=== PATIENT | female | born 2000 | race African-American/Black ===

== ENCOUNTER → 2023-09-21 | Outpatient (CLI) | payer OTHER, MEDICAID ==
[2023-09-21 17:40] LABS: C REACTIVE PROTEIN QUANTITATIV < 0.40 MG/DL (<1.0)
[2023-09-21 17:41] LABS: ALBUMIN 3.4 G/DL (3.2-5.2); ALKALINE PHOSPHATASE 71 U/L (46-116); ALT/SGPT 16 U/L (7.0-40); AST/SGOT 15 U/L (<34); BILIRUBIN,TOTAL 0.9 MG/DL (0.3-1.2); BLOOD UREA NITROGEN 12 MG/DL (9-23); CALCIUM LEVEL 8.7 MG/DL (8.5-10.1); CARBON DIOXIDE LEVEL 26 MMOL/L (20-31); CHLORIDE LEVEL 107 MMOL/L (98-107); CHOLESTEROL LEVEL 140 MG/DL (<200); CHOLESTEROL RISK RATIO 3.29 (<5); CREATININE FOR GFR 0.66 MG/DL (0.55-1.30); GLOMERULAR FILTRATION RATE > 60.0 (>60); GLUCOSE, FASTING 77 MG/DL (60-100); HDL CHOLESTEROL 42.5 MG/DL (>40); HEMATOCRIT 37.5 % (36.0-47.0); HEMOGLOBIN 12.1 g/dl (12.0-15.5); IRON (FE) 125 UG/DL (50-170); LDL CHOLESTEROL 81.1 MG/DL (<100); MEAN CORPUSCULAR HGB CONC 32.3 g/dl (32.0-36.5); MEAN CORPUSCULAR VOLUME 89.9 fl (80.0-96.0); NON-HDL-C 97.5 MG/DL; PERCENT SATURATION 35.7 % (13.2-45.0); PLATELET COUNT, AUTOMATED 460 10^3/uL (150-450); POTASSIUM SERUM 4.8 MMOL/L (3.5-5.1); RED BLOOD COUNT 4.17 10^6/uL (4.00-5.40); SODIUM LEVEL 139 MMOL/L (136-145); TOTAL IRON BINDING CAPACITY 350 UG/DL (250-425); TOTAL PROTEIN 6.7 G/DL (5.7-8.2); TRIGLYCERIDES LEVEL 82 MG/DL (<150)
[2023-09-21 17:42] LABS: FERRITIN 11.1 NG/ML (7.3-270.7); RHEUMATOID FACTOR QUANT 5.1 IU/ML (<14); THYROID STIMULATING HORMONE 1.111 uIU/ML (0.55-4.78)
[2023-09-21 17:43] LABS: FREE T4 0.93 NG/DL (0.89-1.76); VITAMIN B12 LEVEL 372 PG/ML (211-911)
[2023-09-21 17:53] LABS: ERYTHROCYTE SEDIMENTATION RATE 21 mm/hr (0-20)
[2023-09-21 18:01] LABS: HEMOGLOBIN A1c 5.3 % (4.0-6.0)
[2023-09-21 18:07] LABS: HIV 1&2 SCREEN NEGATIVE (NEGATIVE)
[2023-09-21 18:15] LABS: HEPATITIS C VIRUS ABY INDEX < 0.02 INDEX (<0.8)
== END ==
LOC: M WUC 12:22
PROVIDERS: ATTEND Physician Assistant
DX: Z00.01 Encounter for general adult medical examination with abnormal findings (principal); R51.9 Headache, unspecified; M25.561 Pain in right knee; R42 Dizziness and giddiness